=== PATIENT | female | born 1930 | race Native Hawaiian/Other Pacific Islander ===

== ENCOUNTER 2016-10-10 10:11 | Outpatient (CLI) | payer OTHER ==
[2016-12-05] MEDS ORDERED: CLOP75TA2 PO (12:50)
[2016-12-05] MEDS ORDERED: PRAVACHOL20 MG PO (12:51)
[2016-12-05] MEDS ORDERED: GABA300C2 PO (12:51)
[2016-12-05] MEDS ORDERED: CETIRIZINE10 MG PO (12:51)
[2016-12-05] MEDS ORDERED: PHENOBARB97.2 MG OR (12:52)
[2016-12-05] MEDS ORDERED: ASPIR-8181 MG OR (12:52)
[2016-12-05] MEDS ORDERED: CENTRUM SILVER OR (12:53)
[2016-12-05] MEDS ORDERED: STOOL SOFTNR100 M1 OR (12:53)
== END 2016-10-10 19:00 | disposition home or self-care (01) ==
LOC: RAD 10:11
DX: J45.909 Unspecified asthma, uncomplicated (principal)

== ENCOUNTER 2017-08-24 13:05 | Emergency (ER) | payer OTHER ==
[~2017-08-24] VITALS: Ht 167.6 cm; Wt 99.8 kg
[~2017-08-24 13:05] MED LIST: ASPIR-8181 MG OR; CENTRUM SILVER OR; CETIRIZINE10 MG PO; CLOP75TA2 PO; GABA300C2 PO; PHENOBARB97.2 MG OR; PRAVACHOL20 MG PO; STOOL SOFTNR100 M1 OR
[2017-08-24 14:52] VITALS: BP 200/96; TEMP 97.3
== END 2017-08-24 15:59 | disposition short-term general hospital (02) ==
LOC: ED 13:05
PROC: 0HQ0XZZ Repair Scalp Skin, External Approach (ICD-10-PCS; principal; 2017-08-24)
DX: S06.5X0A Traumatic subdural hemorrhage without loss of consciousness, initial encounter (principal); S01.01XA Laceration without foreign body of scalp, initial encounter; W01.190A Fall on same level from slipping, tripping and stumbling with subsequent striking against furniture, initial encounter; Y92.89 Other specified places as the place of occurrence of the external cause
CPT/HCPCS: 96374; 96375; 99285; J2270; J2405